=== PATIENT | female | born 2000 | race Caucasian/White ===

== ENCOUNTER 2023-10-22 09:00 | Outpatient (CLI) | payer OTHER, SELFPAY | END 2023-10-22 09:01 | disposition home or self-care (01) | LOC: NFLDREF 09:05 | PROVIDERS: PCP Registered Nurse; Visit Provider Advanced Practice Midwife | DX: O20.9 Hemorrhage in early pregnancy, unspecified (principal) | CPT/HCPCS: 84702 ==

== ENCOUNTER 2023-10-24 15:34 | Outpatient (CLI) | payer OTHER, SELFPAY | END 2023-10-24 15:35 | disposition home or self-care (01) | PROVIDERS: PCP Registered Nurse; Referring Provider Registered Nurse; Visit Provider Advanced Practice Midwife | DX: O26.851 Spotting complicating pregnancy, first trimester (principal) | CPT/HCPCS: 84702 ==

== ENCOUNTER 2023-11-01 07:56 | Outpatient (CLI) | payer OTHER, SELFPAY ==
--- NOTE | 2023-11-01 08:15 | CRLHL7_ITS ---
For Patients: As a result of the Century Cures Act, medical imaging exams and procedure reports are released immediately into your electronic medical record. You may view this report before your referring provider. If you have questions, please contact your health care provider. INDICATION: First trimester scan, establish dates. COMPARISON: None. TECHNIQUE: Real-time he-scale imaging of the pelvis was performed. FINDINGS: Sonographic imaging demonstrates a single living intrauterine gestation. The embryo demonstrates a cardiac rate measuring 105 beats per minute. The embryo`s crown-rump length measurement of 0.2 cm corresponds to a gestational age of 5 weeks 5 days with a sonographic due date of 06/28/2024. There is a normal-appearing yolk sac. There are no gross abnormalities noted within the embryo at this early state of development. The gestational sac has a normal appearance. There is no evidence of a perigestational hemorrhage. The amount of fluid within the sac appears appropriate for gestational age. The cervix is closed. The myometrium appears normal. Normal right ovary. Left ovary not visualized. There are no suspicious fluid collections noted in the cul-de-sac. IMPRESSION: Single living intrauterine with sonographic gestational age 5 weeks 5 days and sonographic due date 06/28/2024. Lower limits of normal heart rate 105 beats per minute. Follow-up could be considered in 2 weeks. Dictated by James Bates MD @ 11/01/2023 10:20:24 AM (Electronically Signed)
== END 2023-11-01 07:57 | disposition home or self-care (01) ==
LOC: US 07:56
PROVIDERS: PCP Registered Nurse; Visit Provider Advanced Practice Midwife
DX: Z34.91 Encounter for supervision of normal pregnancy, unspecified, first trimester (principal); O36.8310 Maternal care for abnormalities of the fetal heart rate or rhythm, first trimester, not applicable or unspecified; Z3A.01 Less than 8 weeks gestation of pregnancy
CPT/HCPCS: 76817; 86592; 86703; 86704; 86706; 86762; 86787; 86803; 86850; 86900; 86901; 87086; 87340

== ENCOUNTER 2023-11-13 15:38 | Outpatient (CLI) | payer OTHER, SELFPAY ==
--- NOTE | 2023-11-13 16:00 | CRLHL7_ITS ---
For Patients: As a result of the Century Cures Act, medical imaging exams and procedure reports are released immediately into your electronic medical record. You may view this report before your referring provider. If you have questions, please contact your health care provider. INDICATION: Dating and viability. Follow up. TECHNIQUE: Transvaginal scanning was performed to optimally evaluate the IUP and adnexa. Ovarian blood flow was evaluated with color-flow and pulsed Doppler. COMPARISON: 11/01/2023 FINDINGS: There is a living IUP with gestational age of 9 weeks by LMP and 7 weeks 6 days by today`s crown-rump length. EDC based on today`s crown-rump length is 06/25/2024. The embryonic heart rate is measured at 163 beats per minute. The placenta is not yet formed. No subchorionic hemorrhage is evident. The ovaries are normal in size and shape. The right ovary measures 3.5 x 2.6 x 2.2 cm and the left 2.7 x 1.9 x 1.8 cm. Ovarian blood flow is demonstrated with color-flow and pulsed Doppler. No adnexal mass or free fluid is apparent. IMPRESSION: 1. Living IUP with gestational age of 9 weeks by LMP and 7 weeks 6 days by today`s crown-rump length. EDC based on today`s crown-rump length is 06/25/2024. 2. No complication evident. Dictated by Dheeraj Herrera MD @ 11/15/2023 1:37:34 PM (Electronically Signed)
== END 2023-11-13 15:39 | disposition home or self-care (01) ==
LOC: US 15:39
PROVIDERS: Visit Provider Registered Nurse
DX: Z34.91 Encounter for supervision of normal pregnancy, unspecified, first trimester (principal); Z3A.09 9 weeks gestation of pregnancy
CPT/HCPCS: 76817; 87086; 87491; 87591

== ENCOUNTER 2024-02-08 13:52 | Outpatient (CLI) | payer OTHER, SELFPAY ==
--- NOTE | 2024-02-08 14:00 | US_ITS ---
Patient: WANDY FERNANDEZ Facility:?[facility] Patient ID:?[id number] Site Patient ID:?[id number]. Site :?2001 Study:?US-OB Pelvis AS-02/08/2024 3:06:13 PM Ordering Physician:JACQUE CASTILLO Final Report: HISTORY: anatomic survey. COMPARISON: None available of this gestation. TECHNIQUE: Ultrasound examination of the is performed with transabdominal technique. FINDINGS: A single intrauterine gestation is seen in cephalic presentation with regular cardiac activity at 144 beats per minute. The placenta is anterior and is free of the cervical os. The placental grade is 0 and the amniotic fluid volume is normal. Single deepest vertical pocket: Normal at 3.9 cm. The cervix is closed and cervical length is normal at 4.2 centimeters. BPD: 4.9 cm 20 weeks 5 days HC: 18.0 cm 20 weeks 3 days AC: 16.3 cm 21 weeks 3 days FL: 3.6 cm 21 weeks 3 days The estimated age by ultrasound is 20 weeks 6 days, with an estimated date of delivery of 06/21/2024. This correlates well with the clinical age of 19 weeks 6 days. The ultrasound ratios are normal. The estimated weight of 410 grams is greater than the 97th percentile based on the clinical dates. The anatomic survey demonstrates normal appearing intracranial structures with a normal septum pellucidum and normal cerebellum. The nuchal thickness is normal at 3 mm, and the lateral ventricle is normal in diameter at 6 mm. The upper lip, 4 chamber heart, left and right ventricular outflow tracts, diaphragm, stomach, cord insertion site, 3-vessel cord, kidneys, bladder and spine are normal in appearance. IMPRESSION: 1. Single intrauterine gestation in cephalic presentation with regular cardiac activity. 2. Estimated gestational age is 20 weeks 6 days. 3. The estimated weight of 410 grams is greater than the 97th percentile based on the clinical dates. Dictated by Natan Zuluaga MD @ 02/10/2024 11:38:57 AM Signed by:?Natan Zuluaga MD @02/10/2024 11:38:57 AM (Electronic Signature)
== END 2024-02-08 13:53 | disposition home or self-care (01) ==
LOC: US 13:52
PROVIDERS: Visit Provider Advanced Practice Midwife
DX: Z34.92 Encounter for supervision of normal pregnancy, unspecified, second trimester (principal); Z3A.20 20 weeks gestation of pregnancy
CPT/HCPCS: 76805

== ENCOUNTER 2024-03-08 09:59 | Outpatient (CLI) | payer OTHER, SELFPAY ==
[2024-03-08] MEDS: ACETAMINOPHEN 500 MG TABLET 1000 MG PO (10:30)
--- NOTE | 2024-03-08 11:07 | US_ITS ---
Patient: WANDY FERNANDEZ Facility:?[facility] Patient ID:?[id number] Site Patient ID:?[id number]. Site :?2001 Study:?US-OB Pelvis BPP-03/08/2024 12:10:04 PM Ordering Physician:?Meg Celaya Final Report: INDICATION: Periumbilical pain. COMPARISON: None available. TECHNIQUE: Grayscale pelvic ultrasound via a transabdominal approach. FINDINGS: number: 1 Position: Cephalic. Placental Position: Anterior. Amniotic fluid: DVP 5.4cm. heart rate: 138bpm. BPP Score: Fluid: 2 Breathin Movement: 2 Tone: 2 Total: 8 The technologist questions focal obliteration of the interface between the placenta and myometrium with loss of definition of the hypoechoic retroplacental zone. This is measured on series 3; image 150). See the cine clip (for example, series 3; image 160). IMPRESSION: Normal BPP score (8/8). Possible focal placenta accreta/increta described above. Consider referral to Maternal Medicine for confirmation/further evaluation (US or MRI). Dictated by Les Mistry MD @ 03/08/2024 1:05:17 PM Signed by:?Les Mistry MD @03/08/2024 1:05:17 PM (Electronic Signature)
--- NOTE | 2024-03-08 11:37 | P.OBLDTN_ITS ---
OB - Triage/Final Diagnosis Visit Information Time Seen by Provider: 10:45 Date Seen: 03/08/24 Narrative: Liv is a 23 year old 2 para 0 at 24 weeks gestation by US, who presents with right mid abdominal pain. is uncomplicated. 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 This morning while working, she noted sudden onset of right mid abdominal pain (just lateral to umbilicus) with no known inciting factor. Pain is described as sharp and stabbing, rated as 8/10 in severity when walking. She subsequently sat down to rest, where her pain persisted but is improved to 4/10. She endorses tenderness to even light touch in the area. She denies any preceding trauma to the area. Liv has otherwise been feeling in her normal state of health. She denies any known contractions, vaginal bleeding, leaking of fluid, decreased movement, abnormal vaginal discharge, nausea/vomiting, fever/chills, bowel or bladder concerns. Appetite at baseline. No sick contacts. Evaluation Comments: General: Alert and oriented, in no acute distress. Tearful intermittently. Abdomen: Gravid. Otherwise soft, nondistended in the upper abdomen. Nontender to palpation in the right upper quadrant, left upper quadrant or left lower quadrants. There is mild to palpation right lower quadrant, greatest tenderness to palpation about 2 cm lateral to the umbilicus on the right. Tenderness is greatest with pushing, no rebound or guarding. Uterine tone is soft. Carnett's sign is positive with sharp increase of pain. NST: Reactive for gestational age. Baseline is 140 beats per minute, moderate variability, 10 x 10 accelerations present, no decelerations [place]: No contractions or uterine irritability identified OB ultrasound: 88 BPP. Area of possible diminished interface between the placenta and myometrium over the site of pain. No retroplacental blood/hematoma, no suspicion for abruption. Formal radiology read is not yet back. Final Diagnosis (1) Abdominal pain: Status: Acute Problem details: Liv is a 23yo at 24w0d GA seen for sudden right abdominal pain that started with ambulation. Pain is constant and exacerbated with movement, improved with rest. Tylenol and heat therapy trailed for analgesia in triage. Abdominal exam is entirely benign, no signs/symptoms of acute abdomen or intraabdominal pathology such as appendicitis. Discussed potentially getting a CBC to rule out leukocytosis, however mutually agree this is unlikely to be helpful given no fevers/chills, nausea/vomiting, bowel or bladder concerns. Uterine tone is soft, no contractions noted on toco, no vaginal bleeding noted. NST is reassuring for gestational age, BPP 8/8. No retroplacental bleeding or hematoma noted. Physical exam notable for tenderness to light palpation with positive carnett's sign, highly consistent with musculoskeletal pain at the rectus abdominus muscle. Recommend Tylenol, ice/heat and rest for symptomatic management. Liv can consider an abdominal support belt to reduce strain on the rectus abdominus as her abdomen grows. UA suggestive of contaminant, UC pending. Strict return precautions provided for any persistent/worsening pain, vaginal bleeding, leaking of fluids, decreased movement, fevers/chills, nausea/vomiting or bowel/bladder concerns. 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 Liv has no risk factors for placenta accreta spectrum and had a normal anatomy US 4 weeks ago. PAS is very unlikely, however will consider repeat US vs MRI for further characterization pending Radiology read. All questions answered. Return precautions reinforced. Patient is agreeable to above plan.
[2024-03-08 12:41] LABS: Appearance Urine Clear (Clear); Bilirubin Urine Negative (Negative); Blood Urine Negative (Negative); Color Urine Light yellow (Yellow); Glucose Urine Negative (Negative); Ketones Urine Negative (Negative); Leukocyte Esterase Urine Trace (Negative); Nitrite Urine Negative (Negative); Protein Urine Negative (Negative); Specific Gravity Urine <= 1.005 (1.000-1.030); Urobilinogen Urine 0.2 (0.2-1.0)
[2024-03-08 12:59] LABS: RBC Urine 0-2 (0-2)
[2024-03-08 13:00] LABS: Bacteria Urine Many; Squamous Epithelial Cell Urine Moderate (None-Few); WBC Urine 0-2 (0-5)
--- NOTE | 2024-03-08 15:09 | PC.OBNST ---
NST Note NST Note Start: 03/08/24 10:02 Freq: ONCE Status: Active Protocol: Document 03/08/24 15:06 ABP (Rec: 03/08/24 15:08 [facility] [id number]) NST Note 2 Para (# of births) 0 EDC 06/28/24 Gestational Age In Weeks & Days 24 Weeks & 0 Days Patient Presented with Complaint(s) of Pain If Pain, describe location Sharp pain just right of the umbilicus Reactive Yes Appropriate for Gestational Age Yes MARK Sampson, MARKC Date 03/08/24 Reactive Yes Appropriate for Gestational Age Yes MARK Amaya, RN Date 03/08/24 OB NST charge Yes Complete NST Note via Write Note Yes The provider's electronic signature indicates the NST is reactive/appropriate for gestational age. *Note to provider: If an addendum is required, open the patient's chart and click on the note under the Nurse/Allied Health tab.
== END 2024-03-08 13:30 | disposition home or self-care (01) ==
LOC: OB OUT 10:00 → OB 13:26
PROVIDERS: Visit Provider Obstetrics & Gynecology
DX: O26.892 Other specified pregnancy related conditions, second trimester (principal); R10.9 Unspecified abdominal pain; Z3A.24 24 weeks gestation of pregnancy
CPT/HCPCS: 59025; 76819; 81001; 81003; 87086; G0463; A9270

== ENCOUNTER 2024-04-02 10:02 | Outpatient (CLI) | payer OTHER, SELFPAY | END 2024-04-02 10:03 | disposition home or self-care (01) | LOC: NFLDREF 04-04 11:55 | PROVIDERS: Visit Provider Obstetrics & Gynecology | DX: Z34.92 Encounter for supervision of normal pregnancy, unspecified, second trimester (principal); Z3A.27 27 weeks gestation of pregnancy | CPT/HCPCS: 86592 ==

== ENCOUNTER 2024-05-01 13:40 | Outpatient (CLI) | payer OTHER, SELFPAY ==
--- NOTE | 2024-05-01 14:00 | CRLHL7_ITS ---
For Patients: As a result of the Century Cures Act, medical imaging exams and procedure reports are released immediately into your electronic medical record. You may view this report before your referring provider. If you have questions, please contact your health care provider. INDICATION: exceptionally large baby TECHNIQUE: Real time he scale imaging of the fetus was performed. COMPARISON: 03/08/2024 FINDINGS: Sonographic imaging demonstrates a single living intrauterine gestation. Fetus demonstrates a regular cardiac rate of 150 beats per minute. Fetus has a vertex position. The placenta lies anteriorly. Amniotic fluid volume appears normal and there is a single deepest pocket of 7.2 cm. The estimated weight is 2197gm which lies at the 90th %. On the prior OB ultrasound dated 02/08/2024 the estimated weight was at the 97th percentile. BPD 75th percentile. HC is 56th percentile. AC 94th percentile. FL 72nd percentile. The fetus demonstrates normal breathing movements. Normal tone. No gross body movements. IMPRESSION: Biophysical profile 04/12. Sonographic gestational age 33 weeks 2 days and sonographic due date 06/17/2024. Sonographic age 11 days ahead of the clinical age. Estimated weight 90th percentile. Abdominal circumference is 94th percentile. Dictated by James Bates MD @ 05/02/2024 6:47:42 AM (Electronically Signed)
== END 2024-05-01 13:41 | disposition home or self-care (01) ==
PROVIDERS: Visit Provider Obstetrics & Gynecology
DX: O36.63X0 Maternal care for excessive fetal growth, third trimester, not applicable or unspecified (principal); Z3A.33 33 weeks gestation of pregnancy
CPT/HCPCS: 76816; 76819

== ENCOUNTER 2024-05-30 09:25 | Outpatient (CLI) | payer OTHER, SELFPAY ==
[2024-05-31 10:40] LABS: Strep B DNA Probe Negative (Negative)
[2024-05-31 11:12] LABS: Strep B Susceptibility Needed? No
== END 2024-05-30 09:26 | disposition home or self-care (01) ==
PROVIDERS: Visit Provider Obstetrics & Gynecology
DX: Z34.93 Encounter for supervision of normal pregnancy, unspecified, third trimester (principal); Z3A.35 35 weeks gestation of pregnancy
CPT/HCPCS: 87081; 87653

== ENCOUNTER 2024-07-02 14:59 | Inpatient (IN) | payer OTHER, SELFPAY ==
[2024-07-02] VITALS (17 sets, daily range): BP systolic 116–132; BP diastolic 61–84; PULSE 77–127; RESP 16; TEMP 36.7–36.9; O2SAT 97–100; BMI 26.1
--- NOTE | 2024-07-02 16:03 | P.LDBA_ITS ---
Subjective History of Present Illness Date Seen: 07/02/24 Narrative: Patient is being admitted to Labor and Delivery for IOL due to post term dates. She is a 23 year old at 40 4/7 weeks gestation. Her full history and physical was dictated by Dr. Celaya on 06/06/24. Please see this for details. Specific Issues/Plans G 2 P 0010 Spouse: Leonel. Baby: Boy! 1. Nausea/vomiting of : * Vitamin B6 and Zofran 2. EFW >97% on FAS (02/08/24) * 32 week: EFW 89%ile. * 1 hour glucola: normal at 96mg/dL 3. ?Possible PAS - 24 week US in triage (for R periumbilical pain) where tech questioned loss of interface between placenta/myometrium [x] referral to MFM for level 2 US and consideration of MRI [x ] f/u MFM notes: Completed on 03/10/2024: Anterior placenta not previa, three-vessel umbilical cord with normal insertion, normal amount of amniotic fluid. EFW: 94th percentile, abdominal circumference 88th percentile. No evidence of placenta accreta spectrum identified. Return to primary provider for continued care. Flu: Completed Covid: Completed, not boosted. Recommended booster. Patient declines. 34 week Hgb: Completed at 32 weeks due to fatigue/pallor, normal at 11.6. Tdap: 04/17/24 GBS: negative H&P: Belia on 06/06 OB - Problem Based A/P Additional Plan (1) : Status: Acute Plan 1. Patient preferred to defer cervical check at this moment, does not feel like things have changes significantly. From her last check in clinic she was found 1cm/50/-3 and we had discussed starting Cytotec vaginally. Will proceed with Cytotec per protocol. 2. GBS negative no need for antibiotic prophylaxis. 3. Candidate for pain management as needed. OB Exam Physical Exam Vital signs: Temp Pulse BP Pulse Ox 98.1 F 127 H 132/84 97 07/02/24 15:13 07/02/24 15:14 07/02/24 15:14 07/02/24 15:13 Detailed Labor and Delivery Exam Patient Gravid: Yes Fetus (Single) Amniotic Membrane Status: intact Heart Rate Baseline: 130 Monitor Accelerations: Present Monitor Decelerations: None School Director Variability: Moderate (6-25)
[2024-07-02] MEDS: miSOPROStoL 25 MCG/0.25 TABLET VAGINAL (16:31)
[2024-07-02 17:24] LABS: Basophils Absolute Auto 0.02 K/uL (0.00-0.30); Basophils Percent Auto 0.2 % (0.0-3.0); Eosinophils Absolute Auto 0.05 K/uL (0.00-0.50); Eosinophils Percent Auto 0.5 % (0.0-7.0); Hematocrit 38.6 % (33.0-51.0); Hemoglobin* 12.3 gm/dL (12.0-16.0); Immature Granulocytes Abs Auto 0.06 K/uL (0.00-0.30); Immature Granulocytes Pct Auto 0.6 %; Lymphocytes Percent Auto 13.7 % (20-44); Mean Corpuscular HGB Conc 32 gm/dL (32-36); Mean Corpuscular Hemoglobin 28 pg (26-34); Mean Corpuscular Volume 88 fL (80-100); Monocytes Percent Auto 9.2 % (0.0-11.0); Neutrophils Percent Auto 75.8 % (42.0-72.0); Platelet Count* 249 K/uL (140-440); RDW Coefficient of Variation % 13.3 % (11.5-15.5); Red Blood Count 4.41 m/uL (4.00-5.20); White Blood Count* 10.71 K/uL (4.50-11.00)
[2024-07-02] MEDS: LACTATED RINGERS 1000 ML 1,000 ML 1200 ML IV (17:24)
[2024-07-02 17:25] LABS: Slide Review Reflex No
[2024-07-02] MEDS: TERBUTALINE 1 MG/ML INJ 0.25 MG SUBCUT (18:11)
--- NOTE | 2024-07-02 18:53 | P.OBPN_ITS ---
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 IVF bolus was given, position changes, but uterine contractions were too frequent and recommendation was given to give 1 dose of terbutaline. Terbutaline was given at around 6pm and currently no new decelerations and variability has improved. Labor Progress: Cervix was re evaluated and we discussed trying placement of cook catheter and this was placed at 6:50pm. 50mL on both balloons. Patient tolerated it well. Will continue close monitoring. 2 Plan Plan: Cook catheter in place, if contractions space out and tracing is reassuring we can try to start Oxytocin later tonight. Patient understands that if there is concerns about intolerance of IOL process recommendation would be to proceed with delivery as she is still far from expected vaginal delivery. Will continue close monitoring.
[2024-07-02] MEDS: hydrOXYzine pamoate 25 MG CAPSULE 100 MG PO (20:05)
[2024-07-02] MEDS: ACETAMINOPHEN 500 MG TABLET 1000 MG PO (20:13)
[2024-07-02] MEDS: LACTATED RINGERS 1000 ML 1,000 ML IV (20:39)
[2024-07-02] MEDS: fentaNYL 100 MCG/2 ML inj IVP (20:40)
[2024-07-03] VITALS (98 sets, daily range): BP systolic 95–136; BP diastolic 49–83; PULSE 70–126; RESP 16; TEMP 36.5–37.3; O2SAT 86–100
[2024-07-03] MEDS: LACTATED RINGERS 1000 ML 1,000 ML 125 ML IV ×3 (00:14→21:07)
[2024-07-03] MEDS: OXYTOCIN 30 unit/500 ML in NS 30 UNIT/500 ML BAG IVPB (00:16)
[2024-07-03] MEDS: fentaNYL 100 MCG/2 ML inj IVP (03:25)
[2024-07-03] MEDS: LACTATED RINGERS 1000 ML 1,000 ML 1125 ML IV ×4 (06:50→16:49)
[2024-07-03] MEDS: ROPIVACAINE 0.2% 100 ml 100 ML 12 MG EPIDURAL ×2 (07:11→14:34)
[2024-07-03] MEDS: LIDOCAINE 2% (PF) 5 ML VIAL EPIDURAL (07:12)
--- NOTE | 2024-07-03 07:17 | PM.ANBPRC ---
[facility] Medical History Constipation ?K59.00 - Constipation, unspecified (ICD-10) Spotting in first trimester ?O26.851 - Spotting complicating , first trimester (ICD-10) Abdominal pain ?R10.9 - Unspecified abdominal pain (ICD-10) History of blood transfusion ?Z92.89 - Personal history of other medical treatment (ICD-10) Miscarriage ?O03.9 - Complete or unspecified spontaneous without complication (ICD-10) Surgical History History of placement of ear tubes ?Z96.22 - Myringotomy tube(s) status (ICD-10) H/O hernia repair ?Z98.890 - Other specified postprocedural states (ICD-10) ?Z87.19 - Personal history of other diseases of the digestive system (ICD-10) 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 What is your current living situation?: I presently have a place to live Problems where you live: no known problems In the past 12 months, utilities in danger of being shut off: no In past 12 months, lack of transportation kept you from medical appts, meetings, work, or getting things needed for daily living: no In the past 12 mos, have been you worried that your food would run out before you had money to buy more?: never true In the past 12 mos, the food you bought just didn't last and you didn't have money to buy more?: never true Smoking Status: Never smoker How often does anyone, including family, friends and others, physically hurt you: never How often does anyone, including family, friends and others, insult or talk down to you: never How often does anyone, including family, friends and others, threaten you with harm: never How often does anyone, including family, friends and others, scream or curse at you: never Little interest or pleasure in doing things: not at all Feeling down, depressed, or hopeless: not at all Meds Home Medications and Allergies Home Medications ?Medication ?Instructions ?Recorded ?Confirmed ?Type vits no.126-ferrous fum 1 tab PO DAILY 11/01/23 07/02/24 History 28 mg iron-folic acid 800 mcg tablet (Classic ) Allergies Allergy/AdvReac Type Severity Reaction Status Date / Time No Known Drug Allergies Allergy Verified 06/27/24 09:59 Results Labs Labs: Laboratory Results - last 24 hr 07/02/24 17:05 WBC 10.71 RBC 4.41 Hgb 12.3 Hct 38.6 MCV 88 MCH 28 MCHC 32 RDW Coeff of Luis 13.3 Plt Count 249 Neut % (Auto) 75.8 H Lymph % (Auto) 13.7 L [place] % (Auto) 9.2 Eos % (Auto) 0.5 Baso % (Auto) 0.2 Neut # (Auto) 8.10 H Lymph # (Auto) 1.50 [place] # (Auto) 1.00 H Eos # (Auto) 0.05 Baso # (Auto) 0.02 Abs Immat Gran (auto) 0.06 Imm/Tot Granulo (auto) 0.6 Blood Type O Positive Antibody Screen NEGATIVE Vital Signs Vital Signs: Last Vital Signs Temp 98.5 F 07/03/24 05:22 Pulse 92 07/03/24 07:16 Resp 16 07/03/24 05:22 BP 113/64 07/03/24 07:16 Pulse Ox 98 07/03/24 07:13 Weight: 71.123 kg Height: 165.1 cm Anesthesia Procedures Epidural Insertion Patient Location: OB Start Time: 06:55 Stop Time: 07:25 Start Date: 07/03/24 Stop Date: 07/03/24 Reason for Block: primary anesthetic Patient Position: sitting Performed By: Ferny Bailey Preanesthetic Checklist: IV checked, risks and benefits discussed, surgical consent, monitors and equipment checked, pre-op evaluation, timeout performed and anesthesia consent Prep: chlorhexidine gluconate Monitoring: blood pressure monitoring, clinical research monitor, continuous pulse oximetry and heart rate Approach: midline Vertebral Space: lumbar (1-5) Needle Type: Tuohy needle Injection Technique: continuous catheter (catheter) Needle gauge: 17 Needle Length (cm): 10 cm Needle Insertion Depth (cm): 5 Catheter Gauge: 19 Catheter Type: multi-orifice Catheter at skin depth (cm): 10 Test Dose Result: negative and lidocaine 1.5% with epinephrine 1 to 200,000
--- NOTE | 2024-07-03 08:49 | PM.OBPNL ---
Subjective Time Seen by Provider: 08:49 Date Seen: 07/03/24 Narrative: Subjective: Patient is comfortable w/ epidural.. Pitocin: 2 milliunits/minute. Verbal consent obtained for artificial rupture of membranes. Vital signs: Per electronic medical record. EFM: Baseline 140s, positive accelerations, negative decelerations, moderate variability, reactive. Category 1. [place]: Contractions every 2-5 minutes. SVE: 5 cm/80 %/-2. AROM: Clear fluid Assessment: 23-year-old 1 para 0 at 40 weeks 5 days gestation undergoing induction of labor Plan: 1. Continue Pitocin per labor induction protocol. 2. Continue epidural for labor analgesia. 3. Expect vaginal delivery. Objective Vital Signs: Last Vital Signs Temp 98.5 F 07/03/24 05:22 Pulse 99 07/03/24 08:38 Resp 16 07/03/24 05:22 BP 105/55 L 07/03/24 08:38 Pulse Ox 100 07/03/24 07:53 Pelvic Exam Dilation (cm): 1 Effacement (%): 75 Station: -3 Contractions Monitor mode: External Contraction pattern: Regular Contraction intensity: Strong/Firm Assessment Station: -3 Status: Category ll Heart Rate Baseline: 145 Monitor Accelerations: Present Monitor Decelerations: Late
[2024-07-03] MEDS: ONDANSETRON 2 MG/ML inj 4 MG IV (17:31)
[2024-07-03] MEDS: AZITHROMYCIN 500 MG in 0.9 % SODIUM CHLORIDE 250 ml 250 ML 255 MG IVPB (20:01)
--- NOTE | 2024-07-03 20:17 | PM.PROC ---
Procedure Note Time Seen by Provider: 21:42 Date Seen: 07/03/24 Date of procedure: 07/03/24 Will [facility] bill your pro fee for this procedure?: Yes Procedure: Preoperative diagnosis: 23-year-old 1 para 0 at 40 and 5/7 weeks Postoperative diagnosis: Same Procedure: Primary low-transverse section Anesthesia: Epidural Surgeon: Scarlett Osullivan MD Vulnerability Assessment Analyst: NOLAN Mariee Quantitative blood loss: 358 mL IV Fluid: 1400 mL UOP: 75 mL blood tinged before and after the procedure Specimen: None Drain(s): Jordan to gravity Indications: The patient became complete at 5:25 p.m. on 07/03/2024. She pushed for over 2 hours and 20 minutes without the vertex progressing past +1 station. Suspected occiput transverse presentation. Findings: A live male infant was delivered from the ROT position at 9:06 p.m. Apgars were 7 at 1 min and 9 at 5 min, respectively. weight: 7 lb 11 oz. Nuchal cord(s): Yes: Double nuchal cord that was easily reduced prior to delivery of the 's shoulders at the surgical field. The placenta was delivered spontaneously and complete at 9:08 p.m. Amniotic fluid: Thick meconium-stained Normal uterus, fallopian tubes and ovaries were noted. Procedure: Liv was taken to the OR where epidural anesthetic was found be adequate. A Jordan catheter was placed. The patient was then placed in the dorsal supine position with a leftward tilt. She was then prepped and draped in a normal sterile manner. A Pfannenstiel skin incision was made and carried through sharply to the underlying layer of fascia. Fascia was incised in the midline and this incision carried laterally with Hall scissors. The superior aspect of fascial incision was grasped with Jimmy clamps, tented up, and the rectus muscles dissected off with a combination of blunt and sharp dissection. The inferior aspect of the fascial incision was not dissected off of the rectus muscles. The rectus muscles were in the midline. The peritoneum was entered bluntly. This opening was extended bluntly. An Freddy-O self-retaining retractor was placed. A bladder flap was not created. Uterus was incised in a low transverse manner in the midline. This incision carried laterally with blunt pressure on the inferior and superior aspects of the uterine incision. The amniotic sac was ruptured. The infant's head and body was delivered atraumatically. The was shown to the patient and her support person and then handed to waiting pediatric and nursing staff. The placenta was delivered spontaneously. The uterus was cleared of clots and debris. The uterine incision was re-approximated with the uterus in vivo. The 1st layer using 0-Vicryl in a running, locked manner. The 2nd layer using 0-Monocryl in a running, vertical, imbricating layer. Additional sutures needed for hemostasis: No. Excellent hemostasis was verified. The Freddy retractor was removed. The rectus muscles were not reapproximated. The rectus muscles were then closely inspected to verify hemostasis. Hemostasis was obtained with bipolar cautery. The fascia was then re-approximated using 0-Maxon loop in a running manner. The subcutaneous tissue was then irrigated with saline and hemostasis obtained with bipolar cautery. The subcutaneous tissue was re-approximated using 3-0 plain gut in a running manner. The skin was reapproximated using 4-0 Monocryl in a running subcuticular manner. Exofin skin adhesive and a Mepilex dressing were applied. The patient tolerated this procedure well. Sponge, lap and instrument counts were correct x2 active to the procedure. Patient was taken to the recovery area in stable condition. The patient received 2g of IV Ancef and 500mg azithromycin prior to skin incision.
[2024-07-03] MEDS: CEFAZOLIN 2 GM INJ IVP (20:50)
[2024-07-03] MEDS: KETOROLAC 30 MG/ML inj IVP (21:25)
--- NOTE | 2024-07-03 22:29 | W.ANESCHARGE ---
Anesthesia Charges Start Date/Time Anesthesia Start Date: 07/03/24 Anesthesia Start Time: 20:41 Stop Date/Time Anesthesia Stop Date: 07/03/24 Anesthesia Stop Time: 22:08 Summary Emergency: INPATIENT NURSING AIDE
--- NOTE | 2024-07-03 22:30 | P.NB_ITS ---
Nerve Block Nerve Block Time Seen by Provider: 21:50 Date Seen: 07/03/24 Type of block requested by surgeon for post-operative analgesia: TAP Side: bilateral Time out performed: Yes Verification of patient name: Yes Verification of date of : Yes Site marking: not applicable Name of person performing procedure: Olvin Continuous monitoring Was continuous monitoring of O2 sat, B/P, business process coordinator, recorded every 15 minutes?: Yes Procedure Checklist: sterile prep and needles Ultrasound guided. Images saved: Yes Medications given in 5ml increments after negative aspiration: Marcaine %: 0.25 mL: 30 Needle gauge: 20 and Exparel mL: 10 Patient tolerated procedure well: Yes Block Charges Block Charge (with Pro Fee): TAP Bilateral Use of Ultrasound Machine for Block: Yes- US Guidance/pain block
[2024-07-03] MEDS: ACETAMINOPHEN 500 MG TABLET 1000 MG PO (23:00)
[2024-07-04] VITALS (21 sets, daily range): BP systolic 98–137; BP diastolic 57–79; PULSE 72–102; RESP 14–19; TEMP 36.3–36.6; O2SAT 97–99
[2024-07-04] MEDS: KETOROLAC 30 MG/ML inj IVP ×4 (03:41→21:03)
[2024-07-04] MEDS: ACETAMINOPHEN 500 MG TABLET 1000 MG PO ×3 (05:09→16:58)
[2024-07-04 07:04] LABS: Hemoglobin* 11.3 gm/dL (12.0-16.0)
--- NOTE | 2024-07-04 07:59 | PM.OBPNVD1 ---
OB - PN:Subj Subjective Date Seen: 07/04/24 Patient comments OB post-: no complaints, pain well controlled, tolerating diet and flatus present [place] status: and doing well [place] feeding status: exclusively Narrative: Liv feels well.? Her pain is well controlled with current medications.? She has no new complaints.? Urinary output is adequate and she is voiding without difficulty.? Has a good appetite, is tolerating a general diet, is passing flatus, and has not had a bowel movement.? Has scant amount of rubra lochia.? She is ambulating well.?She is planning on discharging on Sunday. OB - PN: Obj Exam Physical Exam: Vital signs: Temp Pulse Resp BP Pulse Ox O2 Del Method 98.1 F 102 H 16 108/66 97 Room Air 07/03/24 22:51 07/04/24 06:00 07/04/24 06:00 07/04/24 06:00 07/04/24 06:00 07/04/24 06:00 Narrative: GENERAL APPEARANCE:? normal affect, alert, no distress? MOOD:? appropriate? CHEST:? clear to auscultation and percussion? HEART:? regular rate and rhythm? ABDOMEN:? soft, non-tender the uterine fundus is U/2 off to the right and is appropriate for the stage of recovery. Encouraged her up urinate as she states that it has been a while. Incision dressing is clean, dry and intact.? EXTREMITIES:? normal and no edema? Urinary Catheter Management: Urethral: Cath placed during this visit: yes, but has since been removed by the nurse Reason for continuing: surgical procedure Removal date: 07/04/24 Removal time: 06:15 OB - PN: Obj Data Labs Labs: Laboratory Results - last 24 hr 07/04/24 06:49 Hgb 11.3 L OB - PN: A/P Delivery Assessment and Plan (1) Lactating mother: Status: Acute (2) care and examination immediately after delivery: Status: Acute (3) Status post primary low transverse section: Status: Acute Plan day: 1 Plan: routine care Comments: Anticipate dischrge home tomorrow or the following day per patient preference.
--- NOTE | 2024-07-04 12:38 | PM.ANPOST ---
Post Anesthesia Note Post Anesthesia Note Patient seen: Inpatient Respiratory Status: adequate Cardiovascular Status: adequate Mental Status: baseline Pain: adequate Temp: baseline Anesthetic awareness: N/A Complications: none Follow care: none
[2024-07-04] MEDS: DOCUSATE SODIUM 100 MG CAPSULE PO (14:14)
[2024-07-04 21:46] LABS: Rapid Plasma Reagin (RPR) Non Reactive (Non Reactive)
[2024-07-05] MEDS: ACETAMINOPHEN 500 MG TABLET 1000 MG PO ×4 (00:02→19:58)
[2024-07-05] MEDS: KETOROLAC 30 MG/ML inj IVP (03:20)
[2024-07-05 03:27] VITALS: BP 102/65; PULSE 82; RESP 16; TEMP 36.7; O2SAT 97
[2024-07-05] MEDS: SIMETHICONE 80 MG TAB.CHEW PO (05:05)
[2024-07-05] MEDS: DOCUSATE SODIUM 100 MG CAPSULE PO (05:05)
[2024-07-05 07:40] VITALS: BP 106/65; PULSE 74; RESP 16; O2SAT 98
--- NOTE | 2024-07-05 08:20 | P.OBPN_ITS ---
OB - PN:Subj Subjective Time Seen by Provider: 08:20 Date Seen: 07/05/24 Patient comments OB post-: pain well controlled, tolerating diet and flatus present status: Micro feeding status: exclusively Narrative: Liv is postop day 2 from a primary low-transverse . She is ambulating without difficulty, tolerating regular diet, passing flatus and her pain is well controlled on current medication. She is planning on discharging home tomorrow. She is breast-feeding without problems. OB - PN: Obj Exam Physical Exam: Vital signs: Temp Pulse Resp BP Pulse Ox O2 Del Method 98.1 F 74 16 106/65 98 Room Air 07/05/24 03:27 07/05/24 07:40 07/05/24 07:40 07/05/24 07:40 07/05/24 07:40 07/05/24 07:40 Narrative: General: Pleasant, , well groomed woman in no acute distress. Vital signs: Included in her electronic medical record. Heart: Regular rate and rhythm without gallop, rub or murmur. Chest: Clear to auscultation bilaterally. Fundus: Firm at 1 cm below the umbilicus in the midline. Incision: Clean, dry and intact with sutures in skin adhesive gel. Extremities: No pain or edema Urinary Catheter Management: Urethral: Cath placed during this visit: yes, but has since been removed by the nurse Reason for continuing: surgical procedure Removal date: 07/04/24 Removal time: 06:15 OB - PN: Obj Data Labs Labs: Laboratory Results - last 24 hr 07/02/24 17:05 RPR Screen Non Reactive OB - PN: A/P Delivery Assessment and Plan (1) Lactating mother: Status: Acute (2) care and examination immediately after delivery: Status: Acute Assessment and Plan: (3) Status post primary low transverse section: Status: Acute Assessment and Plan: 1. Continue postoperative care. 2. Planning on discharge home tomorrow.
[2024-07-05] MEDS: OXYCODONE 5 MG TABLET PO ×3 (09:13→19:59)
[2024-07-05] MEDS: IBUPROFEN 600 MG TABLET PO ×3 (10:54→23:16)
[2024-07-05 17:00] VITALS: BP 115/72; PULSE 93; RESP 16; TEMP 36.3; O2SAT 98
[2024-07-05 23:12] VITALS: BP 115/66; PULSE 100; RESP 18; TEMP 36.5; O2SAT 98
[2024-07-06] MEDS: ACETAMINOPHEN 500 MG TABLET 1000 MG PO ×2 (02:19→08:14)
[2024-07-06] MEDS: OXYCODONE 5 MG TABLET PO ×2 (02:19→08:14)
[2024-07-06] MEDS: IBUPROFEN 600 MG TABLET PO (05:29)
[2024-07-06] MEDS: DOCUSATE SODIUM 100 MG CAPSULE PO (06:16)
--- NOTE | 2024-07-06 08:01 | P.DS_ITS ---
DS: Providers Provider Time Seen by Provider: 08:01 Date Seen: 07/06/24 Date of admission: 07/02/24 14:59 Primary care physician: Not a Local Provider Admitting Clinician: Fidelia Everett MD Attending Physician on discharge: Scarlett Osullivan MD DS: Diagnosis Discharge Diagnosis (1) Status post primary low transverse section: Status: Acute (2) Lactating mother: Status: Acute Exam Narrative: Exam Narrative: General: Pleasant, , well groomed woman in no acute distress. Vital signs: Included in her electronic medical record. Heart: Regular rate and rhythm without gallop rub or murmur. Chest: Clear to auscultation bilaterally. Abdomen: Soft, nontender and nondistended with normal bowel sounds throughout. Fundus firm at 1 cm below the umbilicus in the midline. Incision: Clean, dry and intact with sutures and skin adhesive gel. Extremities: No pain or edema Const: Vital Signs, click to edit/add: Vital Signs - 24 hr 07/05/24 17:00 07/05/24 23:12 Temperature 97.4 F L 97.7 F Pulse Rate [Pulse Oximeter] 93 100 Respiratory Rate 16 18 Blood Pressure [Ri ght Arm] 115/72 115/66 Pulse Oximetry 98 98 Oxygen Delivery Me thod Room Air Room Air OB - DS: Summary Hospital Course Hospital Course: Liv is a 23 year old G 1 P 1 at 40 and 5/7 weeks gestation that was admitted to the Center on 07/02/24 for induction of labor. She had an uncomplicated delivery for arrest of descent and ROT presentation. She delivered a viable male infant. She is breast feeding. the patient has done well. She would like to be discharged home today. She is tolerating a regular diet, passing flatus, ambulating without difficulty and has adequate urine output. Peripartum Data delivery method: Primary C/S; Labored Laceration description: None Procedures: Procedures Operation Date: 07/03/24 21:00 Actual Procedure Side Surgeon p Primary Low Transverse Section Not Applicable Scarlett Osullivan MD Infant Gender: Male Status at Discharge Functional status at discharge: independent ambulation Overall status at discharge: patient is progressing back to baseline Time Spent with Patient Time attestation: Total time spent providing and/or coordinating discharge services: Time spent: Less than 30 minutes Discharge Plan Discharge Disposition: Home, Self-Care Date of Admission: 07/02/24 14:59 Attending Provider on Discharge: Scarlett Osullivan Primary Care Provider: Provider,Not a Local Condition: Stable Anticipated Discharge Date/Time: 07/06/24 11:00 Discharge Medications: New docusate sodium 100 mg Capsule 100 mg PO BID PRN (Reason: constipation) Qty: 100 0RF ibuprofen 600 mg Tablet 600 mg PO Q6H PRN (Reason: Pain) Qty: 30 0RF oxycodone 5 mg Tablet 5 - 10 mg PO 3XD PRN (Reason: Pain) Qty: 21 0RF Continued Classic 28 mg iron- 800 mcg tablet 1 tab PO DAILY Discharge Orders: Discharge Order (Routine); Ordered 07/06/24 Ordered By: Scarlett Osullivan Patient Education: (DC) Additional Instructions: Discharge instructions were reviewed with the patient including signs and symptoms of infection and home going medications Lifting Restrictions: 20 pounds for 6 weeks No not submerge incision under water X 2 weeks? Nothing vaginally for 6 weeks: no tampons or intercourse Do not drive while taking narcotic pain medication(s) Off Work or School for 8 weeks Symptoms to report to doctor: * Bleeding that saturates more than one pad per hour * Passing clots larger than the size of a golf ball * Pain not relieved by prescribed medication * Fever above 100.4 degrees Fahrenheit * A foul vaginal odor * Difficulty in emotions, mood, and functions * Thoughts of hurting yourself and/or * Painful, reddened area in your breast * Any drainage, redness, or tenderness in your IV/epidural site * Severe headache that doesn't improve after taking medications * Changes in vision, including temporary loss of vision, blurred vision, and/or light sensitivity * Upper abdominal pain (usually under ribs on the right side) * Decrease in urination or painful, frequent urinating * Chest pain * Shortness of breath * Tenderness or pain with redness and/swelling in the calf(s) of your leg Optional 2-week visit: incision check, discuss feeding concerns, review control options and screen for anxiety/depression. 6-week visit for an annual exam. consultation services are available to all mothers and babies for the first year after delivery.? To make an appointment, please call [phone]. Activity Level: Other Discharge Diet: Regular Follow Up Appointments: Provider,Not a Local [Primary Care Provider] - [facility] [Provider Group] Forms: MyHealth Info Instructions
[2024-07-06 09:56] VITALS: BP 111/75; PULSE 100; RESP 17; TEMP 36.6; O2SAT 98
== END 2024-07-06 11:32 | disposition home or self-care (01) | DRG 788 ==
PROVIDERS: Obstetrics & Gynecology; Admitting Provider Obstetrics & Gynecology; Visit Provider Obstetrics & Gynecology
PROC: 10D00Z1 Extraction of Products of Conception, Low, Open Approach (ICD-10-PCS; CPT 59514; principal; 2024-07-03 20:45)
DX: O48.0 Post-term pregnancy (principal); O64.0XX0 Obstructed labor due to incomplete rotation of fetal head, not applicable or unspecified; O76 Abnormality in fetal heart rate and rhythm complicating labor and delivery; O77.0 Labor and delivery complicated by meconium in amniotic fluid; G89.18 Other acute postprocedural pain; Z37.0 Single live birth; Z3A.40 40 weeks gestation of pregnancy
CPT/HCPCS: 01967; 01968; 36415; 59200; 64488; 76942; 85018; 85025; 86592; 86850; 86900; 86901; 99140; A9270; C1726; C9290; J0456; J0665; J0690; J1100; J1885; J2250; J2274; J2371; J2405; J2590; J2795; J3010; J3105; J3490; J7050; J7120

== ENCOUNTER 2025-09-10 13:28 | Outpatient (CLI) | payer OTHER, SELFPAY ==
[2025-09-15 10:15] LABS: Pap Test Digital Imaging Done
== END 2025-09-10 13:29 | disposition home or self-care (01) ==
LOC: FRMREF 13:29
PROVIDERS: Visit Provider Registered Nurse
DX: Z12.4 Encounter for screening for malignant neoplasm of cervix (principal)
CPT/HCPCS: 87624; 87625; 88141; 88142; 88175

== ENCOUNTER 2025-10-12 14:44 | Outpatient (CLI) | payer OTHER, SELFPAY ==
--- NOTE | 2025-10-12 15:00 | CRLHL7_ITS ---
For Patients: As a result of the Century Cures Act, medical imaging exams and procedure reports are released immediately into your electronic medical record. You may view this report before your referring provider. If you have questions, please contact your health care provider. CLINICAL HISTORY: Pelvic pain for the last 5 or 6 months. Recent removal of IUD. Positive home test yesterday. COMPARISON: None. TECHNIQUE: 2D he-scale ultrasound. In addition, color Doppler and spectral Doppler analysis was performed of the pelvis using a transabdominal and transvaginal approach. Transvaginal imaging performed to better visualize the endometrial stripe and ovaries. FINDINGS: The myometrium has a normal uniform echotexture. The uterus measures 8.9 x 4.7 x 5.3 cm. The endometrial lining appears normal and measures 8.9 mm in thickness. The right ovary measures 3.4 x 1.7 x 1.8 cm in size and the left ovary measures 4.2 x 2.7 x 3.1 cm. The ovaries demonstrate normal arterial and venous blood flow on color Doppler and spectral Doppler analysis. Mild right adnexal free fluid is present. There is an oblong structure within the right adnexa which measures 1.9 x 0.6 cm, probable fallopian tube. IMPRESSION: Mild right adnexal free fluid with visualization of the right fallopian tube. No evidence of an intrauterine . No definitive ectopic given history of positive test yesterday. Would recommend correlation with serum beta HCG measurements and short-term follow-up ultrasound for further evaluation. Dictated by James Bates MD @ 10/12/2025 4:28:27 PM (Electronically Signed)
== END 2025-10-12 14:45 | disposition home or self-care (01) ==
LOC: US 14:44
PROVIDERS: Visit Provider Registered Nurse
DX: R10.20 Pelvic and perineal pain unspecified side (principal)
CPT/HCPCS: 76830; 76856; 93976

== ENCOUNTER 2025-10-14 15:30 | Outpatient (CLI) | payer OTHER, SELFPAY | END 2025-10-14 15:31 | disposition home or self-care (01) | LOC: NFLDREF 10-20 21:30 | PROVIDERS: Visit Provider Registered Nurse | DX: Z34.91 Encounter for supervision of normal pregnancy, unspecified, first trimester (principal) | CPT/HCPCS: 84702 ==

== ENCOUNTER 2025-10-16 15:37 | Outpatient (CLI) | payer OTHER, SELFPAY | END 2025-10-16 15:38 | disposition home or self-care (01) | LOC: NFLDREF 10-21 10:29 | PROVIDERS: Visit Provider Registered Nurse | DX: Z34.90 Encounter for supervision of normal pregnancy, unspecified, unspecified trimester (principal) | CPT/HCPCS: 84702 ==

== ENCOUNTER 2025-10-27 12:52 | Outpatient (CLI) | payer OTHER, SELFPAY ==
--- NOTE | 2025-10-27 13:00 | CRLHL7_ITS ---
For Patients: As a result of the Century Cures Act, medical imaging exams and procedure reports are released immediately into your electronic medical record. You may view this report before your referring provider. If you have questions, please contact your health care provider. INDICATION: Dating and Viability. TECHNIQUE: Real time he scale imaging of the fetus was performed. Transabdominal and transvaginal imaging performed. LMP (per patient) 09/18/2025. JOHNNIE by LMP: 06/25/2026. GA: 5 w, 4 d. Previous Pelvis US: Yes (10/06/2025). CRL: 0.3 cm. 6 w 0 d. JOHNNIE: 06/22/2026. FHR: 104 BPM. Gestational sac: 1.3 cm. Appears within normal limits. Yolk sac: 2.6 mm. Appears within normal limits. Right ovary: 4.0 x 0.9 x1.9 cm. Left ovary: 3.1 x 1.8 x 2.3 cm. CL. IMPRESSION: 1) Single living intrauterine measures 6 weeks 0 days with a sonographic due date 06/22/2026. 2) heart rate 104 beats per minute. Follow-up in 2 weeks recommended. JAMES ANDERSON M.D. Diagnostic Radiologist [email or web address] DW/Dictated by: James Anderson MD @ 10/31/2025 10:34:00 PM (Electronically Signed)
== END 2025-10-27 12:53 | disposition home or self-care (01) ==
LOC: US 12:52
PROVIDERS: Visit Provider Registered Nurse
DX: Z34.91 Encounter for supervision of normal pregnancy, unspecified, first trimester (principal); Z3A.01 Less than 8 weeks gestation of pregnancy
CPT/HCPCS: 76817